=== PATIENT | female | born 1940 | race Caucasian/White ===

== ENCOUNTER 2016-09-23 09:23 | Emergency (ER) | payer OTHER ==
[~2016-09-23 09:23] MED LIST: CALCIUM + D3 E1 EACH PO; LEVOTHYROXINE100 MC1 PO; LOPRESSOR PO; PRAVASTATIN SOD20 MG PO
== END 2016-09-23 10:35 | disposition home or self-care (01) ==
LOC: CED 09:23
DX: R13.10 Dysphagia, unspecified (principal); J02.9 Acute pharyngitis, unspecified; I10 Essential (primary) hypertension; E03.9 Hypothyroidism, unspecified
CPT/HCPCS: 99282

== ENCOUNTER 2016-09-23 15:32 | Emergency (ER) | payer OTHER ==
--- NOTE | ~2016-09-23 | EKG ---
PATIENT: PAUL BUNDY UNIT #: [id number] Ventricular Rate: 69 BPM Atrial Rate: 69 BPM P-R Interval: 150 ms QRS Duration: 140 ms Q-T Interval: 474 ms QTC Calculation(Bezet): 507 ms P [place]: 44 degrees Calculated R [place]: 30 degrees Calculated T [place]: 85 degrees Diagnosis Line: Sinus rhythm with occasional Premature ventricular Diagnosis Line: complexes Diagnosis Line: Left bundle branch block Diagnosis Line: Abnormal ECG Diagnosis Line: Diagnosis Line: Confirmed by AGUS HUSAIN MD ([id number]) on Diagnosis Line: 09/25/2016 8:44:03 AM INTERPRETING VIOLETTA SPARKS
--- NOTE | ~2016-09-23 | CR63 ---
[facility] A Service of [facility] & [facility] RADIOLOGY TEXT RESULTS PATIENT: PAUL BUNDY LOCATION: [facility] : 38 UNIT #: [id number] AGE: [address]: Arthur Martínez MD SEX: F ORDER DR: [id number] [facility] [address] [place], [place] [address] [id number] E MR#: [id number] Acc #: [id number] NAME: PAUL BUNDY : 1940 SEX: F STUDY DATE/TIME: 09/23/2016 17:54 UNIT: [facility] ROOM: STUDY DESCRIPTION: CR Chest 2 View Attending Physician: Arthur Martínez M.D. Ordering Physician: Arthur Martínez M.D. Primary Care Physician: Colin Cano Jr., M.D. MEDICAL IMAGING REPORT This report is preliminary unless electronic signature is present EXAM 2 views of the chest COMPARISON CT angiography of the chest on the same day as well as 2 views of the chest dated May 24, 2014 and AP chest dated January 10, 2014. INDICATION 76-year-old female with dyspnea for 3 days. FINDINGS There is stable top normal heart size. Prominent fat is again noted in the anterior mediastinum, confirmed on CT. There is diffuse bridging calcification of the thoracic spine, a finding which can be seen in DISH, or ankylosing spondylitis or possibly inflammatory bowel disease. No evidence of pneumothorax, pleural effusion or acute airspace disease. Cardiomediastinal silhouette is within normal limits. IMPRESSION No acute radiographic abnormality of the chest. Dictated by... Alejandro Nguyen M.D. THIS IS AN ELECTRONICALLY VERIFIED REPORT Alejandro Nguyen M.D. at 09/26/2016 2:47 PM ASHWIN/rnr TD: 09/23/2016 21:58 JOB #: [id number] MEDICAL IMAGING REPORT Page 1 of 1 COPY
--- NOTE | ~2016-09-23 | CT16 ---
[facility] A Service of [facility] & [facility] RADIOLOGY TEXT RESULTS PATIENT: PAUL BUNDY LOCATION: [facility] : 38 UNIT #: [id number] AGE: [address]: Arthur Martínez MD SEX: F ORDER DR: [id number] [facility] [address] [place], [place] [address] [id number] E MR#: [id number] Acc #: [id number] NAME: PAUL BUNDY : 1940 SEX: F STUDY DATE/TIME: 09/23/2016 17:18 UNIT: [facility] ROOM: STUDY DESCRIPTION: CT Angio Chest for PE Attending Physician: Arthur Martínez M.D. Ordering Physician: Arthur Martínez M.D. Primary Care Physician: Colin Cano Jr., M.D. MEDICAL IMAGING REPORT This report is preliminary unless electronic signature is present EXAM Chest CT with contrast with CT angiography HISTORY Shortness of breath and chest tightness for 2 days. TECHNIQUE Axial imaging was obtained through the chest with contrast. 80 mL of Isovue was used. CT angiography was performed with thick sliding MIPs in the sagittal and coronal projections. This CT exam was performed with one or more of the following radiation dose reduction techniques: automatic control, adjustment of mA and/or kV according to patient size, and iterative reconstruction. FINDINGS Chest images at mediastinal window show no evidence of aortic dissection or pulmonary embolism. No pleural or pericardial fluid is seen. Small calcified gallstones are seen in the gallbladder. The CT angiographic images also show no evidence of emboli. Lung window imaging shows both lungs to be clear. IMPRESSION Cholelithiasis. Negative chest CT. No evidence of pulmonary embolism. Dictated by... Rishi Chapman M.D. THIS IS AN ELECTRONICALLY VERIFIED REPORT Rishi Chapman M.D. at 09/26/2016 5:23 PM MAXX/harman TD: 09/23/2016 22:07 JOB #: [id number] [facility] A Service of [facility] RADIOLOGY TEXT RESULTS PATIENT: PAUL BUNDY LOCATION: [facility] : 38 UNIT #: [id number] AGE: [address]: Arthur Martínez MD SEX: F ORDER DR: MEDICAL IMAGING REPORT Page 1 of 1 COPY
[2016-09-23 14:54] LABS: BASOPHIL% 0.3 % (0-2.5); HEMOGLOBIN 13.8 gm/dL (12.0-16.0); LYMPHOCYTE# 1.8 X10e3 (1.0-3.5); LYMPHOCYTE% 26.6 % (17.0-45.0); MEAN CELL VOLUME 85.1 FL (83-96); MEAN CORPUSCULAR HEMOGLOBIN 28.7 PG (28-34); MEAN CORPUSCULAR HGB CONC 33.8 g/dL (30-36); MEAN PLATELET VOLUME 9.8 FL (6.5-11.5); MONOCYTE# 0.5 X10e3 (0-1.0); MONOCYTE% 8.1 % (3.0-12.0); NEUTROPHIL# 4.4 X10e3 (1.5-7.1); PLATELET COUNT 147 X10e3 (140-420); RED BLOOD COUNT 4.82 X10e (3.90-5.30); RED CELL DISTRIBUTION WIDTH 13.6 % (11.0-15.5); WHITE BLOOD COUNT 6.8 X10e3 (4.0-10.5)
[2016-09-23 14:56] LABS: DIFF IND NO
[2016-09-23 15:19] LABS: ALBUMIN SERUM 4.5 g/dL (3.5-5.0); BILIRUBIN, DIRECT 0.2 mg/dL (0.0-0.2); BILIRUBIN,INDIRECT 0.8 mg/dL (0.0-0.9); CALCIUM SERUM 9.4 mg/dL (8.4-10.2); CREATININE SERUM 0.8 mg/dL (0.6-1.4); GLOM FILT RATE Estimated 71.2 mL/min (>60); POTASSIUM 3.7 mmol/L (3.5-5.1); PROTEIN TOTAL SERUM 7.2 g/dL (6.0-8.3)
[2016-09-23 15:46] LABS: POC - CKMB <1.0 ng/mL (0.0-7.9); POC - TROPONIN 0.05 ng/mL (<=0.05)
[2016-09-23 16:29] LABS: POC - CKMB <1.0 ng/mL (0.0-7.9); POC - TROPONIN <0.05 ng/mL (<=0.05)
== END 2016-09-23 18:45 | disposition home or self-care (01) ==
LOC: CED 15:32
PROVIDERS: Emergency Medicine
DX: R13.10 Dysphagia, unspecified (principal); I10 Essential (primary) hypertension; M54.2 Cervicalgia; G89.29 Other chronic pain; Z90.710 Acquired absence of both cervix and uterus; Z88.0 Allergy status to penicillin; Z88.5 Allergy status to narcotic agent; Z88.8 Allergy status to other drugs, medicaments and biological substances
CPT/HCPCS: 36415; 71020; 71275; 80048; 80076; 82553; 84484; 85025; 85379; 93005; 96374; 99284; C9113; Q9967